=== PATIENT | female | born 1960 | race Caucasian/White ===

== ENCOUNTER 2017-07-29 11:24 | Outpatient (CLI) | payer OTHER ==
--- NOTE | 2017-07-29 19:20 | RAD ---
CERVICAL SPINE FIVE VIEWS: Date: 07-29-17 Technique: AP, lateral, open mouth and oblique views were obtained. FINDINGS: No fracture or dislocation was seen. Slight disc space narrowing was present at C4-5, C5-6 and C6-7. The C1-2 dens distance is normal and the soft tissues are normal in thickness. Oblique view show neural foraminal encroachment by osteophytes at C4-5 and to a lesser extent C5-6. M inimal osteophytes are seen on the left at C6-7. On the right side there is significant foraminal enc roachment at C4-5 and to a lesser extent C5-6. IMPRESSION: Degenerative disc changes, particularly below C4. Significant foraminal encroachment at several level s as listed above. POS: HOME
== END 2017-07-29 11:25 | disposition home or self-care (01) ==
LOC: BURRAD 11:24
PROVIDERS: ATTEND Family Medicine
DX: M54.2 Cervicalgia (principal); M47.892 Other spondylosis, cervical region
CPT/HCPCS: 72050

== ENCOUNTER 2018-10-22 14:52 | Outpatient (CLI) | payer OTHER ==
--- NOTE | 2018-10-22 19:22 | RAD ---
CHEST TWO VIEWS 10/22/18 Comparison is made with a prior study dated 08/09/14. The heart is normal in size and the lungs are clear. No focal infiltrate or effusion was appreciated. The mediastinum was unremarkable. The bony structures showed no acute change. IMPRESSION: No acute thoracic findings. POS: HOME
== END 2018-10-22 14:53 | disposition home or self-care (01) ==
LOC: BURRAD 14:52
PROVIDERS: ATTEND Family Medicine
DX: R60.0 Localized edema (principal)
CPT/HCPCS: 71046

== ENCOUNTER 2019-03-23 16:58 | Emergency (ER) | payer OTHER ==
[2019-03-23] MEDS ORDERED: Iopamidol 370 76% 100 ML VIAL IV ONE (16:59)
[2019-03-23 17:56] LABS: #Basophils 0.1 thou/uL (0.0-0.2); #Eosinphils 0.2 thou/uL (0.0-0.7); #Lymphocytes 2.7 thou/uL (1.20-3.40); #Monocytes 0.8 thou/uL (0.11-0.59); #Neutrophils 11.1 thou/uL (1.40-6.50); %Basophils 0.8 % (0.0-1.0); %Eosinophils 1.5 % (0.0-10.0); %Monocytes 5.1 % (0.0-10.0); %Neutrophils 74.6 % (42.0-75.0); Hemoglobin 14.7 g/dL (12.0-16.0); Mean Corpuscular HGB CONC 31.6 g/dL (32.0-36.0); Mean Corpuscular Hemoglobin 27.3 pg (27.0-31.0); Mean Corpuscular Volume 86.3 fL (78.0-98.0); Mean Platelet Volume 5.9 fL (7.4-10.4); Platelet Count 280 thou/uL (130-400); RBC Distribution Width 14.3 % (11.5-14.5); Red Blood Cell (RBC) Count 5.38 mill/uL (4.20-5.40); White Blood Cell (WBC) Count 14.9 thou/uL (4.8-10.8)
[2019-03-23 18:12] LABS: ALT (SGPT) 19 U/L (8-55); AST (SGOT) 21 U/L (5-34); Albumin 4.3 g/dL (3.5-5.0); Alkaline Phosphatase 109 U/L (40-110); Anion Gap 18 mmol/L (10-20); BUN (Urea Nitrogen) 15 mg/dL (9.8-20.1); Bilirubin, Total 0.4 mg/dL (0.2-1.2); Calc. Creatinine Clearance 0 mL/min (70-130); Calcium 9.8 mg/dL (7.8-10.44); Carbon Dioxide 22 mmol/L (22-29); Chloride 103 mmol/L (98-107); Estimated GFR-MDRD 73; Glucose 101 mg/dL (70-105); Lipase 21 U/L (8-78); Potassium 4.5 mmol/L (3.5-5.1); Protein, Total 8.3 g/dL (6.0-8.3); Sodium 138 mmol/L (136-145)
[2019-03-23] MEDS ORDERED: metroNIDAZOLE 250 MG TAB ONE (18:23)
[2019-03-23] MEDS ORDERED: Ciprofloxacin 500 MG TAB ONE (18:23)
--- NOTE | 2019-03-23 18:48 | CT ---
CT ABDOMEN AND PELVIS WITH CONTRAST: 03/23/2019 TECHNIQUE: A spiral CT of the abdomen and pelvis was done following the injection of IV contrast to investigate left-sided abdominal pain with fever. Axial slices were acquired followed by coronal and sagittal rec onstructions. FINDINGS: The major finding on this study is intense inflammation around the patient's sigmoid colon, just a li ttle bit distal to the junction with the descending colon. The findings are most consistent with feng re diverticulitis. There is a moderate amount of free fluid in the patient's cul-de-sac. The remainder of the exam is unremarkable. The lung bases are clear. The liver and spleen are mainly remarkable for the sigmoid inflammatory changes listed above. No pelvic masses are seen. IMPRESSION: 1. Severe sigmoid diverticulitis with intense inflammatory reaction around it. Some free fluid in the cul-de-sac. 2. 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 Findings discussed with Dr. Bales at 1810 on . CODE CR POS: HOME
== END 2019-03-23 18:30 | disposition home or self-care (01) ==
LOC: BURERS 16:58
DX: K57.32 Diverticulitis of large intestine without perforation or abscess without bleeding (principal); M06.9 Rheumatoid arthritis, unspecified
CPT/HCPCS: 74177; 80053; 83690; 85025; Q9967